=== PATIENT | male | born 1955 | race Caucasian/White ===

== ENCOUNTER → 2019-09-29 | Outpatient (CLI) | payer MEDICARE ==
--- NOTE | 2019-09-29 10:44 | RAD ---
WRIST 2V LEFT 09/29/2019 12:00 AM INDICATION: Injury with nail gun COMPARISON: None available. TECHNIQUE: 2 views of the left wrist are provided. FINDINGS/ IMPRESSION: There is no acute fracture or dislocation. Mild joint space narrowing involving the scapholunate interval with subcortical cystic change or interosseous ganglion. Bone mineralization is within normal limits. Regional soft tissues are within normal limits. There is no soft tissue gas or osseous erosion. No radiopaque foreign body. Electronically signed by: Erika Cox MD (09/29/2019 10:41 AM) [facility]
== END | disposition home or self-care (01) ==
LOC: PMG 10:16
PROVIDERS: ATTEND Family Medicine
DX: M79.5 Residual foreign body in soft tissue (principal)
CPT/HCPCS: 73100